=== PATIENT | female | born 1945 | race Caucasian/White ===

== ENCOUNTER 2024-11-16 13:26 | Day surgery (SDC) | payer OTHER, SELFPAY ==
[2024-11-12 14:55] VITALS: BMI 27.7
--- NOTE | 2024-11-13 10:41 | HO.ANESPROP2 ---
Documented by User: Deirdre Gaona NP 11/13/24 12:10 HPI - Anesthesia Eval Consult details Narrative: 79yo F for Colonoscopy Follows [facility] for SVT/atrial tach, marily. Last office visit 06/2024, holter monitor report shows marily with sleep to 30's. D/c'd atenolol and started on dilatiazem. Also rare atrial tach ~120-130s. Pt to f/u with EP [facility] Past Medical History Medical History Hypercholesteremia SVT (supraventricular tachycardia) Hypothyroid GBS (Guillain [place] syndrome) Surgical History Surgical History H/O colonoscopy History of bladder suspension procedure Hx of hysterectomy Social History Social History Are you a primary aged or disabled carer to a significant other at home: No Do you presently have visiting nurse or other home services: No Patient Tobacco Use Status: Never used Tobacco Use of substances other than those prescribed or required for medical reasons: No Have you been hit, kicked, punched, or otherwise hurt by someone within the past year? If so, by whom?: No Are you DNR?: No Advance Directives: No Advance Directives Information Provided: Yes Advance Directives on File: No Recently lost weight without trying: No Nutrition Risks: No Nutritional Risk Meds Allergies Allergy/AdvReac Type Severity Reaction Status Date / Time morphine Allergy Unknown Unknown Verified 11/16/24 13:39 oseltamivir [From Tamiflu] Allergy Unknown Unknown Verified 11/16/24 13:39 Home Medications ?Medication ?Instructions ?Recorded ?Confirmed ?Last Taken ?Type aspirin 81 mg tablet,delayed 81 mg PO DAILY 11/12/24 11/16/24 11/09/24 History release atorvastatin 80 mg tablet 80 mg PO DAILY 11/12/24 11/16/24 Unknown History diltiazem HCl 120 mg 120 mg PO DAILY 11/12/24 11/16/24 11/16/24 History capsule,extended release 24 hr, controlled (DILT-XR) levothyroxine 88 mcg tablet 88 mcg PO DAILY 11/12/24 11/16/24 11/16/24 History meclizine 25 mg tablet 25 mg PO BID PRN Vertigo 11/12/24 11/16/24 Unknown History Exam Height,Weight and Vital Signs: Height 5 ft 1 in Weight 66.451 kg Assessment and Plan Assessment Anesthesia Assessment: Chart Reviewed Documented by User: Carlos Herman MD 11/16/24 15:49 [facility] Past Medical History Medical History Hypercholesteremia SVT (supraventricular tachycardia) Hypothyroid GBS (Guillain [place] syndrome) Family History Family history of problems with anesthesia: No Surgical History Surgical History H/O colonoscopy History of bladder suspension procedure Hx of hysterectomy History of Problems with Anesthesia: No Social History Social History Are you a primary aged or disabled carer to a significant other at home: No Do you presently have visiting nurse or other home services: No Patient Tobacco Use Status: Never used Tobacco Use of substances other than those prescribed or required for medical reasons: No Have you been hit, kicked, punched, or otherwise hurt by someone within the past year? If so, by whom?: No Are you DNR?: No Advance Directives: No Advance Directives Information Provided: Yes Advance Directives on File: No Recently lost weight without trying: No Nutrition Risks: No Nutritional Risk Meds Allergies Allergy/AdvReac Type Severity Reaction Status Date / Time morphine Allergy Unknown Unknown Verified 11/16/24 13:39 oseltamivir [From Tamiflu] Allergy Unknown Unknown Verified 11/16/24 13:39 Home Medications ?Medication ?Instructions ?Recorded ?Confirmed ?Last Taken ?Type aspirin 81 mg tablet,delayed 81 mg PO DAILY 11/12/24 11/16/24 11/09/24 History release atorvastatin 80 mg tablet 80 mg PO DAILY 11/12/24 11/16/24 Unknown History diltiazem HCl 120 mg 120 mg PO DAILY 11/12/24 11/16/24 11/16/24 History capsule,extended release 24 hr, controlled (DILT-XR) levothyroxine 88 mcg tablet 88 mcg PO DAILY 11/12/24 11/16/24 11/16/24 History meclizine 25 mg tablet 25 mg PO BID PRN Vertigo 11/12/24 11/16/24 Unknown History Exam Airway Mallampati Class: II TM Dist: <=3cm Neck ROM: Full Loose/Missing/Broken Teeth: No Heart: ok. see above. Dr. Taylor's office note ([facility]) from 06/26/24 reviewed fully. Lungs: ok Assessment and Plan Assessment Anesthesia Assessment: Anesthesia Plan Discussed Final Anesthetic Review Family History of Problems with Anesthesia: No History of Problems with Anesthesia: No NPO: Yes ASA Class: III Final Preanesthetic Review: No Changes in Pt Med Stat, Meds/Allgs Chart Reviewed, Consent Obtained/Reviewed and Anes Risks/Benef Reviewed Patient Risk: Intermediate Procedure Risk: Low Anesthetic Plan Anesthetic Plan: MAC: and Agree w/ Assess. and Plan Disposition: Standard PACU
[2024-11-16 13:48] VITALS: BP 114/92; PULSE 83; RESP 14; TEMP 36.9; O2SAT 96; BMI 26.4
--- NOTE | 2024-11-16 14:04 | ECG_ITS ---
Test Reason : preop Blood Pressure : */* mmHG Vent. Rate : 74 BPM Atrial Rate : 74 BPM P-R Int : 168 ms QRS Dur : 130 ms QT Int : 438 ms P-R-T Axes : 48 -74 25 degrees QTcB Int : 486 ms Sinus rhythm with occasional Premature ventricular complexes Right bundle branch block Left anterior fascicular block Bifascicular block Possible Lateral infarct , age undetermined Cannot rule out Inferior infarct (masked by fascicular block?) , age undetermined Abnormal ECG No previous ECGs available Referred By: Carlos Herman Electronically Signed By: Lucius Baca
[2024-11-16] MEDS: Lactated Ringers 1,000 ML 100 ML IVCONT (14:13)
[2024-11-16 16:45] VITALS: BP 101/57; PULSE 48; RESP 17; TEMP 36.4; O2SAT 97
--- NOTE | 2024-11-16 16:52 | P.BOP_ITS ---
Brief Operative Note Date of Service: 11/16/24 Pre-op diagnosis: Change in BM's Post-op diagnosis: other (Diverticulosis) Procedure: Colonoscopy to the cecum and TI Surgeon: Zeb Cano MD Anesthesia: MAC Was an Spinning Machine Tender used for this Procedure?: No Estimated blood loss (mL): 0 Pathology: none sent Condition: stable Disposition: PACU
[2024-11-16 17:00] VITALS: BP 111/58; PULSE 76; RESP 16; TEMP 36.3; O2SAT 100
--- NOTE | 2024-11-17 03:15 | OP_ITS ---
DATE OF SERVICE: 11/16/2024 SURGEON: Zeb Cano MD INDICATIONS: The patient presents for evaluation of change in bowel habits with some constipation and occasional fecal incontinence. Full consent has been obtained from her for this, including risks of bleeding and perforation. PREOPERATIVE DIAGNOSIS: POSTOPERATIVE DIAGNOSIS: PROCEDURE PERFORMED: Colonoscopy to the cecum and terminal ileum. ESTIMATED BLOOD LOSS: COMPLICATIONS: ANESTHESIA: ASSISTANTS: SPECIMENS: PREOPERATIVE DIAGNOSES: Constipation, change in bowel habits, and occasional incontinence. POSTOPERATIVE DIAGNOSES: Constipation, change in bowel habits, and occasional incontinence, diverticulosis, and internal hemorrhoids. DESCRIPTION OF PROCEDURE: The patient was placed in the left lateral decubitus position. The digital rectal exam revealed no abnormalities. Sphincter tone was perhaps somewhat diminished. The Olympus video pediatric colonoscope was entered into the rectum and advanced to the cecum. Advancement to the cecum was quite difficult and required abdominal wall pressure. Ultimately, the cecum was reached and the appendiceal orifice and ileocecal valve were visualized, which appeared normal. The terminal ileum was cannulated and appeared normal. The scope was withdrawn back in the colon. The entire cecum and ileocecal valve appeared normal. The scope was slowly withdrawn assessing all mucosal surfaces carefully. Preparation was excellent. I did not visualize any sign of polyps, colitis, nor angiodysplasia. There was a mild amount of sigmoid diverticulosis. In the rectum, scope was retroflexed visualizing some internal hemorrhoids, but no other pathology. The rectal mucosa appeared normal. Scope was straightened and withdrawn from the patient. She tolerated the procedure well and was returned to the recovery area in stable condition. IMPRESSION: 1. Diverticulosis. 2. Internal hemorrhoids. 3. Difficult procedure due to probable adhesions from previous surgeries. PLAN: At this point, the patient will not need any further screening colonoscopies. She was advised to stay on supplemental fiber or increase dietary fiber in regard to her change in bowel habits. She was advised to drink plenty of fluids during the day as well. We did review that her occasional episodes of small amounts of incontinence could be related to diminished sphincter tone. She was advised that she could resume her aspirin today. If things are stable, she will see me on a p.r.n. basis. This has been reviewed with her daughter, Jessica. MD PAVAN Freedman/ELHAM / [id number]
== END 2024-11-16 17:25 | disposition home or self-care (01) ==
PROVIDERS: PCP Family Medicine; Visit Provider Internal Medicine
PROC: 0DJD8ZZ Inspection of Lower Intestinal Tract, Via Natural or Artificial Opening Endoscopic (ICD-10-PCS; CPT 45378; principal; 2024-11-16 14:40)
DX: R15.9 Full incontinence of feces (principal); K59.09 Other constipation; K62.89 Other specified diseases of anus and rectum; K57.30 Diverticulosis of large intestine without perforation or abscess without bleeding; K64.8 Other hemorrhoids; G61.0 Guillain-Barre syndrome; E78.00 Pure hypercholesterolemia, unspecified; E03.9 Hypothyroidism, unspecified; I47.10 Supraventricular tachycardia, unspecified; Z79.82 Long term (current) use of aspirin; Z79.899 Other long term (current) drug therapy; Z88.5 Allergy status to narcotic agent; Z88.8 Allergy status to other drugs, medicaments and biological substances; Z98.890 Other specified postprocedural states
CPT/HCPCS: 45378; 93005; J2003; J2704; J3010

== ENCOUNTER → 2024-11-16 14:04 | Outpatient (BNV) | payer OTHER, SELFPAY | PROVIDERS: PCP Family Medicine; Visit Provider Internal Medicine Cardiovascular Disease | DX: I45.2 Bifascicular block (principal); I49.3 Ventricular premature depolarization | CPT/HCPCS: 93010 ==